=== PATIENT | female | born 1970 | race Hispanic/Latino ===

== ENCOUNTER 2018-12-21 11:11 | Day surgery (SDC) | payer SELFPAY ==
[2018-12-21] MEDS ORDERED: Ketorolac Tromethamine 30 MG/ML VIAL ONE (12:35)
[2018-12-21] MEDS ORDERED: Lidocaine 1% PF 5 ML VIAL ONE (12:55)
[2018-12-21] MEDS ORDERED: Glycopyrrolate 0.2 MG/ML 5 ML SYRINGE ONE (12:55)
[2018-12-21] MEDS ORDERED: PROPOFOL 200 MG/20 ML VIAL ONE (12:55)
[2018-12-21] MEDS ORDERED: Succinylcholine Chloride 20 MG/ML 10 ml SYRINGE FS ONE (12:55)
[2018-12-21] MEDS ORDERED: Rocuronium Bromide 10 MG/ML (10ML VIAL) ONE (12:55)
[2018-12-21] MEDS ORDERED: Bupivacaine HCl 0.5%/Epinephrine 1:200,000/PF 30 ml Vial ONE (13:11)
[2018-12-21] MEDS ORDERED: Fentanyl 100 MCG/2 ML VIAL ONE ×3 (13:45→14:55)
--- NOTE | 2018-12-21 21:47 | OP ---
DATE OF PROCEDURE: 12/21/2018 PREOPERATIVE DIAGNOSIS: Acute appendicitis. POSTOPERATIVE DIAGNOSES: Acute appendicitis. PROCEDURE PERFORMED: Laparoscopic video appendectomy. ANESTHESIA: General, local 0.5% Marcaine with epinephrine. DESCRIPTION OF PROCEDURE: The patient was taken to the operating room. Under general anesthesia, abdomen was clipped of hair, prepared with ChloraPrep and draped in routine fashion. Posadas catheter placed at the beginning of the procedure and removed at the end. Infraumbilical incision made, pneumoperitoneum to 15 mmHg was obtained with a Veress needle, replaced with a 5 port. Right lateral subcostal incision made and a 5 port placed. Suprapubic incision was made, a 12 port placed under laparoscopic visualization. Appendix acutely inflamed. Mesoappendix was taken down with a LigaSure. The stump of the appendix divided at the cecal stump with an Endo blue load KENNY stapler. Appendix was removed, submitted to Pathology. Stapled cecal stump. Hemostasis gained with clips. Irrigant evacuated. Pneumoperitoneum evacuated. Suprapubic fascia was approximated with 0 Vicryl UR needle. All skin incisions were approximated with interrupted subdermal 4-0 Monocryl and [place] glue applied. Job ID: [id number]
--- NOTE | 2018-12-21 21:49 | HP ---
HISTORY OF PRESENT ILLNESS: Naomi Joseph is a 48-year-old female, onset of abdominal pain in right lower quadrant early this morning. She presented to the emergency room, evaluated, noted to have changes of appendicitis. She has received intravenous fluids and antibiotics. ALLERGIES: NONE. SOCIAL HISTORY: Tobacco, none. Alcohol, none. MEDICATIONS: None routinely. PAST SURGICAL HISTORY: Umbilical hernia repair, lap beverly. PAST MEDICAL HISTORY: Diabetes mellitus type 2. PHYSICAL EXAMINATION: VITAL SIGNS: 57 kg, 130/74, 93, 18. HEAD, EARS, EYES, NOSE AND THROAT: Unremarkable. LUNGS: Clear to auscultation. CARDIAC: Regular rate and rhythm without murmur or gallop. ABDOMEN: Soft. Tenderness in right lower quadrant. No guarding or rebound. EXTREMITIES: Unremarkable. ASSESSMENT AND PLAN: Acute appendicitis. Recommend laparoscopic video appendectomy. Risks of infection, bleeding, reoperation, open operation were discussed. Questions answered. Job ID: [id number]
== END 2018-12-21 16:52 | disposition home or self-care (01) ==
LOC: SDC 11:11
PROVIDERS: ATTEND Specialist
PROC: 0DTJ4ZZ Resection of Appendix, Percutaneous Endoscopic Approach (ICD-10-PCS; principal; 2018-12-21)
DX: K35.80 Unspecified acute appendicitis (principal); E11.9 Type 2 diabetes mellitus without complications
CPT/HCPCS: 88304; J0131; J0670; J1885; J2001; J2704; J3010